=== PATIENT | female | born 1935 | race Caucasian/White ===

== ENCOUNTER 2018-09-30 11:36 | Outpatient (CLI) | payer MEDICARE, BC ==
[~2018-09-30] VITALS: Ht 160 cm; Wt 85.7 kg
[2018-09-30] VITALS (15 sets, daily range): BP systolic 101–147; BP diastolic 41–73
[~2018-09-30 11:36] MED LIST: IODIXANOL 320 MG/ML 100 ML VIAL. ONE; LIDOCAINE 1% PF 2 ML VIAL. ONE
[2018-09-30] MEDS ORDERED: AMIO200T4 PO (12:31)
[2018-09-30] MEDS ORDERED: POTA20TA4 PO (12:31)
[2018-09-30] MEDS ORDERED: FURO40TA4 PO (12:31)
[2018-09-30] MEDS ORDERED: DILT120C71 PO (12:31)
[2018-09-30] MEDS ORDERED: APIX5TAB PO (12:31)
[2018-09-30] MEDS ORDERED: METO25TA4 PO (12:31)
[2018-09-30] MEDS ORDERED: MIRT15TA3 PO (12:31)
[2018-09-30] MEDS ORDERED: HYDR-2869 PO (12:31)
[2018-09-30 12:47] LABS: HEMATOCRIT 42.4 % (36.0-47.0); RED BLOOD COUNT 4.75 x10^6/uL (3.50-5.40); RED CELL DISTRIBUTION WIDTH 14.3 % (11.5-14.5); WHITE BLOOD COUNT 10.4 x10^3/uL (4.0-11.0)
[2018-09-30 13:05] LABS: CALCIUM 10.2 mg/dL (8.5-10.1); CREATININE 1.1 mg/dL (0.6-1.0); GFR 47.4; POTASSIUM 3.3 mmol/L (3.5-5.1)
[2018-09-30] MEDS ORDERED: MIDAZOLAM HCL/PF 2 MG/2 ML VIAL. ONE (13:15)
[2018-09-30] MEDS ORDERED: fentaNYL PF VIAL 100 MCG/2 ML VIAL ONE (13:15)
[2018-09-30] MEDS ORDERED: NITROGLYCERIN 200 MCG/2 ML SYRINGE FOR CATH/VASC LAB. ONE ×2 (13:15→14:04)
[2018-09-30] MEDS ORDERED: VERAPAMIL 5 MG/2 ML VIAL. ONE (13:15)
[2018-09-30] MEDS ORDERED: HEPARIN for IV BOLUS 10,000 UNIT/10 ML VIAL. ONE (13:15)
[2018-09-30] MEDS ORDERED: IODIXANOL 320 MG/ML 100 ML VIAL. ONE (13:47)
[2018-09-30] MEDS ORDERED: IODIXANOL 320 MG/ML 100 ML VIAL. IART ONE (14:00)
[2018-09-30] MEDS ORDERED: HEPARIN for IV BOLUS 10,000 UNIT/10 ML VIAL. IART ONE (14:00)
[2018-09-30] MEDS ORDERED: LIDOCAINE 1% PF 2 ML VIAL. INJ ONE (14:00)
[2018-09-30] MEDS ORDERED: VERAPAMIL 5 MG/2 ML VIAL. IART ONE (14:00)
[2018-09-30] MEDS ORDERED: NITROGLYCERIN 200 MCG/2 ML SYRINGE FOR CATH/VASC LAB. IART ONE (14:00)
[2018-09-30] MEDS ORDERED: HEPARIN for IV BOLUS 10,000 UNIT/10 ML VIAL. IV ONE (14:00)
[2018-09-30] MEDS ORDERED: fentaNYL PF VIAL 100 MCG/2 ML VIAL IV ONE (14:00)
[2018-09-30] MEDS ORDERED: MIDAZOLAM HCL/PF 2 MG/2 ML VIAL. IV ONE (14:00)
--- NOTE | 2018-09-30 16:25 | CARD ---
MR#: [id number] Date of Study: 09/30/2018 Ordering Physician: MARCELLO CAN, Referring Physician: MARCELLO CAN, Tech: Gabbi Boyd [facility] APPROVED REPORT EXAM: LIMITED Two-dimensional and M-mode echocardiogram with Doppler and color Doppler. Other Information Quality : GoodHR: 72bpm Rhythm : NSR INDICATION Mitral Valve Disease 2D DIMENSIONS RVDd3.5 (2.9-3.5cm)Left Atrium(2D)4.1 (1.6-4.0cm) IVSd1.3 (0.7-1.1cm)Aortic Root(2D)3.1 (2.0-3.7cm) LVDd4.0 (3.9-5.9cm)PWd1.1 (0.7-1.1cm) LVDs2.7 (2.5-4.0cm)FS (%) 32.7 % SV42.0 mlLVEF(%)61.8 (>50%) Mitral Valve MV E Peak Gr.12mmHgMV E Mean Gr.6mmHg Tricuspid Valve TR P. Ctppmhhd088mk/sRAP [id number] TR Peak Gr.[id number] LEFT VENTRICLE The left ventricle is normal size. Proximal septal thickening is noted. The left ventricular systolic function is normal and the ejection fraction is within normal range. The Ejection Fraction is 60-65% . There is normal LV segmental wall motion. RIGHT VENTRICLE The right ventricle is borderline dilated. There is normal right ventricular wall thickness. The righ t ventricular systolic function is normal. ATRIA The left atrium is mildly dilated. The right atrium size is normal. The interatrial septum is intact with no evidence for an atrial septal defect or patent foramen ovale as noted on 2-D or Doppler imagi ng. AORTIC VALVE The aortic valve is mildly calcified. The aortic valve is trileaflet. Doppler and Color Flow revealed trace aortic regurgitation. There is no significant aortic valvular stenosis. MITRAL VALVE The mitral valve is calcified and displays decreased opening. Mitral annular calcification is moderat e to severe. There is no evidence of mitral valve prolapse. There is moderate mitral valve stenosis w ith a maximum pressure gradient of 14 mmHg and mean pressure gradient of 7 mmHg. Doppler and Color-fl ow revealed trace mitral regurgitation. TRICUSPID VALVE The tricuspid valve is normal in structure and function. Doppler and Color Flow revealed mild tricusp id regurgitation.There is mild pulmonary hypertension. The PA pressure was estimated at 34 mmHg. Ther e is no tricuspid valve prolapse or vegetation. There is no tricuspid valve stenosis. PULMONIC VALVE The pulmonic valve is not well visualized. GREAT VESSELS The aortic root is normal in size. The ascending aorta is normal in size. The IVC is normal in size a nd collapses >50% with inspiration. PERICARDIAL EFFUSION There is no evidence of significant pericardial effusion. Critical Notification Critical Value: No <Conclusion> The left ventricular systolic function is normal and the ejection fraction is within normal range. Th e Ejection Fraction is 60-65%. There is normal LV segmental wall motion. The mitral valve is calcified and displays decreased opening. Mitral annular calcification is moderat e to severe. There is moderate mitral valve stenosis with a maximum pressure gradient of 14 mmHg and mean pressure gradient of 7 mmHg. Doppler and Color Flow revealed mild tricuspid regurgitation.There is mild pulmonary hypertension. Th e PA pressure was estimated at 34 mmHg. Signed by : Marcello Can, Electronically Approved : 09/30/2018 16:24:50
--- NOTE | 2018-09-30 16:57 | CARD ---
MR#: [id number] Date of Study: 09/30/2018 Ordering Physician: MARCELLO CAN, Referring Physician: MARCELLO CAN, Tech: Valentina Giraldo RT (R) APPROVED REPORT Technologist: Valentina Giraldo RT (R) Procedure(s) performed: Flouro time: 12min Dose: 58Vdnt2 Contrast: 104cc Moderate sedation: 50 minutes LHC, Coronary angiography iFR of the LM/LAD HISTORY The patient is a 83 year-old female with a history of : hypertension, dyslipidemia. INDICATION The indication(s) include : dyspnea. [facility] Clinical Frailty Scale [facility] Clinical Frailty Scale: Vulnerable Heart Failure Heart Failure: No PROCEDURE NARRATIVE INFORMED CONSENT: After explaining the risks and benefits of the procedure and alternatives, informed consent was obtained. The patient was brought electively to the cardiac catheterization lab. A timeout was performed confi rming the patient's name, date of , procedure, and site of procedure. All necessary personnel w ere wearing the appropriate protective equipment and radiation monitor devices. (See nursing notes for medications administered). ACCESS: The right wrist was sterilely prepped and draped in the usual fashion. The right wrist was infiltrat ed with 1 mL of 2% lidocaine for subcutaneous anesthesia. A 6 Romanian Terumo glide sheath was inserte d into the right radial artery without difficulty. CORONARY ANGIOGRAPHY: Right and left coronary angiography was performed using a 6Fr TIG 4.0 catheter. Left ventricular en d diastolic pressure was obtained with a pigtail catheter and pullback was performed after left ventr iculography. All catheter exchanges and advancements were performed over a guidewire. FINDINGS: HEMODYNAMICS: LVEDP 15 mm Hg No gradient on LV to aortic pullback. AO: 128/78 LEFT VENTRICULOGRAM: Deferred due to known normal EF by echo of 65% on 09/30/2018. CORONARY ANGIOGRAPHY: LM is a large caliber vessel with an ostial/proximal 40% stenosis. LAD is a large caliber vessel with a mid 50-60% stenosis. LCx is a large caliber dominant vessel with mild irregularities of up to 30%. OM1 is a moderate to large caliber vessel with normal angiographic appearance. RCA is a small caliber non-dominant vessel with an ostial 70% stenosis. INTERVENTIONAL TECHNIQUE: iFR of the LM/LAD Heparin was used for anticoagulation. Through a 6Fr EBU 3.5 guide catheter, a 0.014'' Pressure wire w as normalized in the aorta prior to engagement with a guide catheter in the left main. The guide was then used to engage the LM, and the wire was placed in the distal LAD. The iFR value was 0.90 with ca re taken to ensure that the guide was pulled back from the ostium of the LM to prevent any pressure d ampening. Pull back revealed that the pressure drop was only across the LAD and no evidence of pressu re drop across the left main. Due to negative iFR and no clear critical disease with normal LVEDP, it was felt that the patient's dyspnea is unrelated to cardiac disease. CLOSURE: At case completion the right radial sheath was removed and a Terumo radial band was applied with 13 m l of air. COMPLICATIONS: The patient tolerated the procedure well and there were no immediate complications. Conclusion 1. Normal left sided filling pressures. 2. Two vessel coronary disease with negative iFR Recommendations Continued mgmt of BP/HR. Pulmonary evaluation Signed by : Marcello Can, Electronically Approved : 09/30/2018 16:57:06
--- NOTE | 2018-09-30 17:17 | NUR ---
Discharge Note: [facility] Discharge instructions and discharge home medications reviewed with Patient and a copy given. All questions have been answered and understanding verbalized. The following instructions and handouts were given: moderate sedation and radial site care Discontinued lines and drains: Peripheral IV intact. Patient discharged to Home or Self Care withFamily Membervia Wheelchair
== END 2018-09-30 17:26 | disposition home or self-care (01) ==
LOC: CCL 11:36
PROVIDERS: ATTEND Internal Medicine Cardiovascular Disease
DX: I25.10 Atherosclerotic heart disease of native coronary artery without angina pectoris (principal); I11.0 Hypertensive heart disease with heart failure; I50.9 Heart failure, unspecified; Z88.1 Allergy status to other antibiotic agents; Z98.890 Other specified postprocedural states
CPT/HCPCS: 36415; 80048; 85027; 85610; 93308; 93321; 93325; 93458; 93571; 99152; 99153; C1769; C1887; C1892; J1644; J2250; J3010; J3490; Q9967; 93320

== ENCOUNTER 2021-04-10 12:04 | Day surgery (SDC) | payer MEDICARE, BC ==
[~2021-04-10] VITALS: Ht 160 cm; Wt 88.6 kg
[~2021-04-10 12:04] MED LIST changes: +AMIO200T53 PO; +APIX5TAB PO; +BENZOCAINE ONE 20% MUCOSAL SPRAY. MM; +DILT120C71 PO; +FURO40TA4 PO; +HYDR-2869 PO; -IODIXANOL 320 MG/ML 100 ML VIAL. ONE; -LIDOCAINE 1% PF 2 ML VIAL. ONE; +LIDOCAINE 2% TOPICAL JELLY 30GM TUBE. TP ONE; +LIDOCAINE 2% VISCOUS 15 ML SOLUTION. SWSW ONE; +METO25TA4 PO; +MIRT-7 PO; +POTA-121 PO; +PROP20TA PO
--- NOTE | 2021-04-10 13:10 | EKG ---
[facility] [address] [place] [address] Test Date: 2021-04-10 Test Time: 13:07:41 Pat Name: YOCASTA PEREZ Department: Room: Gender: F Sheet Tailer: ELENA : 1935 Requested By: MARCELLO CAN Order Number: [id number] Reading MD: Adi Wan Measurements Intervals [place] Rate: 105 P: SD: QRS: 91 QRSD: 106 T: 6 QT: 378 QTc: 504 Interpretive Statements ATRIAL FIBRILLATION PVCS R-S TRANSITION ZONE IN V LEADS DISPLACED TO THE RIGHT INCOMPLETE RIGHT BUNDLE BRANCH BLOCK T ABNORMALITY IN ANTEROSEPTAL LEADS ABNORMAL ECG Electronically Signed On 04-11-2021 15:37:17 ELECTRONIC COMMERCE SPECIALIST by Adi Wan
--- NOTE | 2021-04-10 13:16 | EKG ---
[facility] [address] [place] [address] Test Date: 2021-04-10 Test Time: 13:07:41 Pat Name: YOCASTA PEREZ Department: Room: Gender: F Business Segment Manager: : 1935 Requested By: MARCELLO CAN Order Number: [id number] Reading MD: Adi Wan Measurements Intervals [place] Rate: P: UT: QRS: QRSD: T: QT: QTc: Interpretive Statements ATRIAL FIBRILLATION NON SPECIFIC ST-T WAVE CHANGES Electronically Signed On 04-11-2021 15:38:02 CHECKOUT OPERATOR by Adi Wan
[2021-04-10 13:22] LABS: CALCIUM 9.1 mg/dL (8.5-10.1); CREATININE 0.9 mg/dL (0.6-1.0); GFR 59.5; MAGNESIUM 2.4 mg/dL (1.8-2.4); POTASSIUM 3.4 mmol/L (3.5-5.1)
[2021-04-10] MEDS ORDERED: IV RINGERS,LACTATED 1000ML 1,000 ML IV SCH (13:30)
[2021-04-10] MEDS ORDERED: AMIODARONE 300 MG in IV DEXTROSE 5% 100ML 100 ML IV ONE (14:30)
--- NOTE | 2021-04-10 14:42 | EKG ---
[facility] [address] [place] [address] Test Date: 2021-04-10 Test Time: 14:39:19 Pat Name: YOCASTA PEREZ Department: Room: Gender: F Crown Buffer: ELENA : 1935 Requested By: MARCELLO CAN Order Number: [id number] Reading MD: Adi Wan Measurements Intervals [place] Rate: 63 P: -4 MA: 230 QRS: 144 QRSD: 92 T: 131 QT: 432 QTc: 445 Interpretive Statements SINUS RHYTHM PROLONGED MA INTERVAL LOW LIMB LEAD VOLTAGE INCOMPLETE RIGHT BUNDLE BRANCH BLOCK RVH WITH REPOLARIZATION ABNORMALITY Electronically Signed On 04-11-2021 15:35:14 CHIN STRAP CUTTER by Adi Wan
[2021-04-10] MEDS ORDERED: AMIO200T53 PO (14:52)
[2021-04-10 14:58] VITALS: BP 107/59
--- NOTE | 2021-04-12 06:14 | CARD ---
MR#: [id number] Date of Study: 04/10/2021 Ordering Physician: MARCELLO MCKENNA, Referring Physician: MARCELLO MCKENNA, Tech: Parul Villagomez, [facility] APPROVED REPORT EXAM: Two-dimensional and M-mode echocardiogram with Doppler and color Doppler. INDICATION Cardioversion Surgery/Intervention Pacemaker: Date: 2018 RISK FACTORS Hypertension Reason For Test : Rule out Intracardiac Thrombus. PROCEDURE After obtaining informed consent, patient underwent transesophageal echo in the PACU. Type of Sedation : General Anesthesia Sedation was administered by Gregory Garrido. Sedation was achieved with Propofol 150mg intravenously. Transesophageal probe was inserted and advanced into esophagus by Tirso Mckenna MD. The MARIO was performed without complications. Synchronized Cardioversion attempted: Successful Synchronized Cardioversion acheived with 200 Joules after 1 attempt(s). Rhythm following Synchronized Cardioversion: Sinus Bradycardia Throughout the procedure, the blood pressure, pulse oximetry, cardiac rhythm, and rate were monitored . The patient tolerated the procedure without adverse effects. Recovery from general anesthesia was une ventful and vital signs were stable. LEFT VENTRICLE The left ventricle is normal size. There is mild to moderate concentric left ventricular hypertrophy. The systolic function is mildly impaired. EF 40-45% There is mild global hypokinesis. No left ventri vianca thrombus noted on this study. RIGHT VENTRICLE The right ventricle is normal size. There is normal right ventricular wall thickness. The right ventr icular systolic function is normal. There is a pacemaker lead in the right ventricle. ATRIA The left atrium is moderately dilated. The right atrium is mildly dilated. The interatrial septum is intact with no evidence for an atrial septal defect or patent foramen ovale as noted on 2-D or Dopple r imaging. There is no thrombus noted in the left atrial appendage. AORTIC VALVE The aortic valve is calcified and displays decreased opening. Doppler and Color Flow revealed trace a ortic regurgitation. There is no significant aortic valvular stenosis. There is no aortic valvular ve getation. MITRAL VALVE The mitral valve is normal in structure and function. There is no evidence of mitral valve prolapse. There is no significant mitral valve stenosis. Doppler and Color-flow revealed trace mitral regurgita tion. TRICUSPID VALVE The tricuspid valve is normal in structure and function. Doppler and Color Flow revealed trace tricus pid regurgitation. There is no tricuspid valve stenosis. PULMONIC VALVE Doppler and Color Flow revealed no pulmonic valvular regurgitation. There is no pulmonic valvular quinn nosis. GREAT VESSELS The aortic root is normal in size. Critical Notification Critical Value: No <Conclusion> The systolic function is mildly impaired. EF 40-45% There is mild global hypokinesis. There is a pacemaker lead in the right ventricle. There is no thrombus noted in the left atrial appendage. Successful CVN to SR. Signed by : Marcello Mckenna, Electronically Approved : 04/12/2021 06:14:00
== END 2021-04-10 15:36 | disposition home or self-care (01) ==
LOC: SURG 12:04
PROVIDERS: ATTEND Internal Medicine Cardiovascular Disease
DX: I11.0 Hypertensive heart disease with heart failure (principal); I50.9 Heart failure, unspecified; I48.91 Unspecified atrial fibrillation; J45.909 Unspecified asthma, uncomplicated; G47.30 Sleep apnea, unspecified; K21.9 Gastro-esophageal reflux disease without esophagitis; M19.90 Unspecified osteoarthritis, unspecified site; F41.9 Anxiety disorder, unspecified; Z79.899 Other long term (current) drug therapy; Z90.710 Acquired absence of both cervix and uterus; Z98.890 Other specified postprocedural states; Z88.2 Allergy status to sulfonamides; Z88.8 Allergy status to other drugs, medicaments and biological substances
CPT/HCPCS: 36415; 80048; 83735; 92960; 93005; 93312; 93320; 93325; J0282; J7060